=== PATIENT | male | born 1945 | race Caucasian/White ===

== ENCOUNTER 2020-02-25 08:37 | Outpatient (CLI) | payer OTHER ==
[~2020-02-25 08:37] MED LIST: ASPI-496 PO; ATOR10TA9 PO; CARV6.252 PO; FURO40TA6 PO; HYDR-3341 PO; INSU100V13 SC; POTA10TA11 PO; PRAS10TA4 PO; SODI650T PO
== END 2020-02-25 23:59 | disposition home or self-care (01) ==
LOC: CVU 08:37
PROVIDERS: ATTEND Orthopaedic Surgery
DX: I35.8 Other nonrheumatic aortic valve disorders (principal); I25.10 Atherosclerotic heart disease of native coronary artery without angina pectoris; I25.9 Chronic ischemic heart disease, unspecified; E11.9 Type 2 diabetes mellitus without complications; E78.5 Hyperlipidemia, unspecified; I25.2 Old myocardial infarction
CPT/HCPCS: 93306

== ENCOUNTER 2020-10-25 15:34 | Day surgery (SDC) | payer MEDICARE, OTHER ==
[2020-10-24 14:39] LABS: BASOPHILS % (AUTO) 1 % (0-1); EOSINOPHILS % (AUTO) 7 % (1-7); LYMPHOCYTES % (AUTO) 19 % (22-44); MEAN CORPUSCULAR HGB CONC 34.8 g/dL (33.2-36.2); MEAN PLATELET VOLUME 6.8 fL (7.4-10.4); MONOCYTES % (AUTO) 9 % (2-9); NEUTROPHILS % (AUTO) 64 % (42-75); PLATELET COUNT 228 x10^3/uL (130-400); RED BLOOD COUNT 3.34 x10^6/uL (4.38-5.82); RED CELL DISTRIBUTION WIDTH 14.8 % (9.4-14.8)
[2020-10-24 14:49] LABS: MD NO
[2020-10-24 14:50] LABS: ALANINE AMINOTRANSFERASE 25 U/L (12-78); ALBUMIN 3.6 g/dL (3.4-5.0); ANION GAP 4 mmol/L (5-15); CALCIUM 9.7 mg/dL (8.5-10.1); CHLORIDE 101 mmol/L (98-107); CREATININE 3.34 mg/dL (0.7-1.3)
[2020-10-24 14:52] LABS: INTERNATIONAL NORMALIZED RATIO 1.08 (0.93-1.1); PROTHROMBIN TIME 11.5 Seconds (9.6-11.5)
[2020-10-24 14:53] LABS: ALKALINE PHOSPHATASE 134 U/L (45-117); BILIRUBIN,TOTAL 0.4 mg/dL (0.2-1.0); TOTAL PROTEIN 7.7 g/dL (6.4-8.2)
[~2020-10-25] VITALS: Ht 167.6 cm; Wt 77.2 kg
[~2020-10-25 15:34] MED LIST changes: +APIX5TAB PO; +BUPIVACAINE/PF 0.25% ONE; +HEPARIN 1,000 UNITS/ML, 10ML ONE; +INSU100V8 SQ; +LIDOCAINE 1%, 20ML ONE; +METH5TAB6 PO; +PANT40TA6 PO; +PAPAVERINE 30 MG/ML, 2ML ONE; +THROMBIN 5,000 UNIT VIAL TP ONE
[2020-10-25] MEDS ORDERED: LACTATED RINGERS 1,000 ML IV SCH (16:00)
[2020-10-25] MEDS ORDERED: CHLORHEXIDINE 15 ML UDC PO ONE (16:00)
[2020-10-25 16:05] VITALS: BP 96/50
[2020-10-25] MEDS ORDERED: CHLORHEXIDINE 15 ML UDC ONE (16:09)
[2020-10-25] MEDS ORDERED: FENTANYL PF 100 MCG/2ML ONE ×2 (16:28→16:48)
[2020-10-25] MEDS ORDERED: PHENYLEPHRINE 10 MG/ML ONE (16:31)
[2020-10-25] MEDS ORDERED: HYDROmorphone 1 MG/ML, 1ML INJ IVPush PRN (17:00)
[2020-10-25] MEDS ORDERED: PROMETHAZINE 25 MG SUPP PR PRN (17:00)
[2020-10-25] MEDS ORDERED: FENTANYL PF 100 MCG/2ML IV PRN (17:00)
[2020-10-25] MEDS ORDERED: ONDANSETRON 2MG/ML, 2ML IVPush PRN (17:00)
[2020-10-25] MEDS ORDERED: PROMETHAZINE 25 MG/ML, 1ML IVPush PRN (17:00)
[2020-10-25] MEDS ORDERED: ACETAMINOPHEN 325 MG TABLET PO PRN (17:00)
[2020-10-25] MEDS ORDERED: OXYcodone 5 MG/5 ML ORAL.SOL UDC PO PRN (17:00)
[2020-10-25] MEDS ORDERED: PROPOFOL 10 MG/ML, 20ML ONE (18:28)
[2020-10-25] MEDS ORDERED: DEXAMETHASONE 4 MG/ML, 1ML ONE (18:28)
[2020-10-25] MEDS ORDERED: ONDANSETRON 2MG/ML, 2ML ONE (18:28)
[2020-10-25] MEDS ORDERED: CEFAZOLIN 1,000 MG ONE (18:28)
[2020-10-25] MEDS ORDERED: TRAM-47 PO (18:32)
== END 2020-10-25 20:20 | disposition home or self-care (01) ==
LOC: SDC 15:34 → EDSTATUS 17:30 → SDC 20:20
PROVIDERS: ATTEND Surgery
DX: T82.898A Other specified complication of vascular prosthetic devices, implants and grafts, initial encounter (principal); E11.22 Type 2 diabetes mellitus with diabetic chronic kidney disease; I12.0 Hypertensive chronic kidney disease with stage 5 chronic kidney disease or end stage renal disease; N18.6 End stage renal disease; I25.10 Atherosclerotic heart disease of native coronary artery without angina pectoris; I48.91 Unspecified atrial fibrillation; Z20.822 Contact with and (suspected) exposure to COVID-19; Z79.01 Long term (current) use of anticoagulants; Z79.4 Long term (current) use of insulin; Z79.899 Other long term (current) drug therapy; Z87.891 Personal history of nicotine dependence; Z89.511 Acquired absence of right leg below knee; Z95.5 Presence of coronary angioplasty implant and graft; Z99.2 Dependence on renal dialysis; Y83.8 Other surgical procedures as the cause of abnormal reaction of the patient, or of later complication, without mention of misadventure at the time of the procedure
CPT/HCPCS: 36415; 36838; 80053; 82962; 85025; 85610; 85730; 93005; J0690; J1100; J1644; J2370; J2405; J2704; J3010; J7120; U0003; J2440